=== PATIENT | female | born 1980 | race Caucasian/White ===

== ENCOUNTER 2023-04-02 12:53 | Emergency (ER) | payer BC, OTHER ==
[~2023-04-02] VITALS: Ht 165.1 cm; Wt 79.8 kg
[2023-04-02 12:55] VITALS: BP 143/75
[2023-04-02] MEDS ORDERED: NS IV 1000 ML 1,000 ML IV STA (13:07)
[2023-04-02] MEDS ORDERED: ONDANSETRON 4 MG/2 ML (SDV) Z0FRAN IVP STA (13:07)
[2023-04-02] MEDS ORDERED: KETOROLAC 15 MG/ML VIAL IVP STA (13:07)
[2023-04-02 13:11] LABS: BASOPHILS % (AUTO) 0 % (0-10); EOSINOPHILS % (AUTO) 0 % (0-10); HEMATOCRIT 40 % (35-52); HEMOGLOBIN 12.7 g/dL (11.5-16.0); LYMPHOCYTES # (AUTO) 0.8 10^3/uL (1.0-4.0); LYMPHOCYTES % (AUTO) 6 % (12-44); MEAN CORPUSCULAR HEMOGLOBIN 28 pg (25-34); MEAN CORPUSCULAR HGB CONC 32 g/dL (32-36); MEAN CORPUSCULAR VOLUME 87 fL (80-99); MEAN PLATELET VOLUME 9.8 fL (9.0-12.2); MONOCYTES # (AUTO) 0.2 10^3/uL (0.0-1.0); MONOCYTES % (AUTO) 2 % (0-12); NEUTROPHILS # (AUTO) 11.8 10^3/uL (1.8-7.8); NEUTROPHILS % (AUTO) 92 % (42-75); PLATELET COUNT 255 10^3/uL (130-400); WHITE BLOOD COUNT 12.9 10^3/uL (4.3-11.0)
[2023-04-02 13:12] LABS: BILIRUBIN,URINE NEGATIVE (NEGATIVE); COLOR,URINE YELLOW; GLUCOSE, URINE (UA) NEGATIVE (NEGATIVE); KETONES,URINE NEGATIVE (NEGATIVE); LEUKOCYTE ESTERASE ,URINE NEGATIVE (NEGATIVE); NITRITE,URINE NEGATIVE (NEGATIVE); PH,URINE 5.5 (5-9); PROTEIN,URINE NEGATIVE (NEGATIVE)
--- NOTE | 2023-04-02 13:13 | ED Abdominal Pain ---
General Chief Complaint: Abdominal/GI Problems Stated Complaint: RIGHT ABD PAIN Source of Information: Patient History of Present Illness Date Seen by Provider: Apr 02, 2023 Time Seen by Provider: 12:58 Initial Comments 42-year-old female presenting with complaints of right flank pain. She states this started earlier this morning. She has had at least 8 episodes of vomiting and continues to be nauseated. She denies having pain like this previously. She also just recently started her menstrual cycle so she is having some vaginal bleeding and is unable to tell if she has blood in her urine or if it is just from her cycle. She has had prior C-sections on her abdomen and pelvis but no other abdominal surgeries. She has taken ibuprofen to try and help with the pain and kept down the dose from noon. She denies fever or chills. She has had no change in her bowel habits. She denies pain with urination but does have right flank pain worse with movement, palpation, urination. She denies any fall or injury to trigger her symptoms. Timing/Duration: 12-24 Hours Severity/Quality: Severe, Cramping, Sharp Location: Flank (Right flank) Radiation: Flank (Right flank) Activities at Onset: Sleeping Modifying Factors: Worsens With Movement, Worsens With Palpation, Worsens With Urinating Associated Symptoms: Back Pain (Right CVA and flank); No Chest Pain, No Diaphoresis, No Fever/Chills, No Fatigue, No Headache, No Heartburn; Nausea/Vomiting; No Rash, No Shortness of Air, No Swelling/Mass in Abdomen, No Syncope, No Weakness Allergies and Home Medications Allergies Coded Allergies: No Known Drug Allergies (Unverified , 04/02/23) Patient Home Medication List Home Medication List Reviewed: Yes Ciprofloxacin HCl (Ciprofloxacin HCl) 500 Mg Tablet, 500 MG PO BID Prescribed by: TITO IBRMINGHAM on 04/02/23 1400 Hydrocodone/Acetaminophen (Hydrocodone-Acetamin 5-325 mg) 5 Mg-325 Mg Tablet, 1 TAB PO Q4H PRN for PAIN SEVERE Prescribed by: TITO BIRMINGHAM on 04/02/23 1401 Ondansetron (Ondansetron Odt) 4 Mg Tab.rapdis, 4 MG PO Q6H PRN for NAUSEA/VOMITING Prescribed by: TITO NGORT on 04/02/23 1400 Tamsulosin HCl (Flomax) 0.4 Mg Cap, 0.4 MG PO DAILY Prescribed by: TITO BIRMINGHAM on 04/02/23 1400 Review of Systems Review of Systems Constitutional: No chills; dizziness; No fever EENTM: No Symptoms Reported Respiratory: No Symptoms Reported Cardiovascular: No Symptoms Reported Gastrointestinal: See HPI Genitourinary: See HPI Musculoskeletal: see HPI Skin: no symptoms reported; No change in color, No rash Psychiatric/Neurological: No Symptoms Reported Endocrine: No Symptoms Reported Past Dnezoac-Idpxyc-Lcuojs Hx Patient Social History Tobacco Use?: No Use of E-Cig and/or Vaping dev: No Substance use?: No Alcohol Use?: No Past Medical History Surgery/Hospitalization HX: section Surgeries: Yes Section Physical Exam Vital Signs Vital Signs - First Documented 04/02/23 12:55 Temp 35.9 Pulse 76 Resp 16 B/P (MAP) 143/75 (97) O2 Delivery Room Air Capillary Refill : Height/Weight/BMI Height: '" Weight: lbs. oz. kg; BMI Method: General Appearance: WD/WN, no apparent distress HEENT: PERRL/EOMI, pharynx normal Neck: non-tender, full range of motion, supple, normal inspection Respiratory: chest non-tender, lungs clear, normal breath sounds, no respiratory distress, no accessory muscle use Cardiovascular: normal peripheral pulses, regular rate, rhythm Gastrointestinal: normal bowel sounds, soft, no pulsatile mass; No distended, No guarding, No rebound; tenderness (Right CVA and flank pain) Rectal: deferred Extremities: normal range of motion, non-tender, normal capillary refill Back: CVA tenderness (R) Neurologic/Psychiatric: alert, oriented x 3 Skin: normal color, warm/dry Progress/Results/Core Measures Results/Orders Lab Results Laboratory Tests Test 04/02/23 12:55 04/02/23 13:05 Range/Units Urine Color YELLOW Urine Clarity CLOUDY Urine pH 5.5 5-9 Urine Specific Colver >=1.030 1.016-1.022 Urine Protein NEGATIVE NEGATIVE Urine Glucose (UA) NEGATIVE NEGATIVE Urine Ketones NEGATIVE NEGATIVE Urine Nitrite NEGATIVE NEGATIVE Urine Bilirubin NEGATIVE NEGATIVE Urine Urobilinogen 0.2 < = 1.0 MG/DL Urine Leukocyte Esterase NEGATIVE NEGATIVE Urine RBC (Auto) 3+ H NEGATIVE Urine RBC 10-25 H /HPF Urine WBC 10-25 H /HPF Urine Squamous Epithelial Cells 2-5 /HPF Urine Crystals NONE /LPF Urine Bacteria MODERATE H /HPF Urine Casts NONE /LPF Urine Mucus LARGE H /LPF Urine Culture Indicated YES White Blood Count 12.9 H 4.3-11.0 10^3/uL Red Blood Count 4.55 3.80-5.11 10^6/uL Hemoglobin 12.7 11.5-16.0 g/dL Hematocrit 40 35-52 % Mean Corpuscular Volume 87 80-99 fL Mean Corpuscular Hemoglobin 28 25-34 pg Mean Corpuscular Hemoglobin Concent 32 32-36 g/dL Red Cell Distribution Width 13.3 10.0-14.5 % Platelet Count 255 130-400 10^3/uL Mean Platelet Volume 9.8 9.0-12.2 fL Immature Granulocyte % (Auto) 0 % Neutrophils (%) (Auto) 92 H 42-75 % Lymphocytes (%) (Auto) 6 L 12-44 % Monocytes (%) (Auto) 2 0-12 % Eosinophils (%) (Auto) 0 0-10 % Basophils (%) (Auto) 0 0-10 % Neutrophils # (Auto) 11.8 H 1.8-7.8 10^3/uL Lymphocytes # (Auto) 0.8 L 1.0-4.0 10^3/uL Monocytes # (Auto) 0.2 0.0-1.0 10^3/uL Eosinophils # (Auto) 0.0 0.0-0.3 10^3/uL Basophils # (Auto) 0.0 0.0-0.1 10^3/uL Immature Granulocyte # (Auto) 0.1 0.0-0.1 10^3/uL Neutrophils % (Manual) 96 % Lymphocytes % (Manual) 3 % Monocytes % (Manual) 1 % Sodium Level 142 135-145 MMOL/L Potassium Level 3.8 3.6-5.0 MMOL/L Chloride Level 106 98-107 MMOL/L Carbon Dioxide Level 23 21-32 MMOL/L Anion Gap 13 5-14 MMOL/L Blood Urea Nitrogen 20 H 7-18 MG/DL Creatinine 1.09 0.60-1.30 MG/DL Estimat Glomerular Filtration Rate 64 BUN/Creatinine Ratio 18 Glucose Level 119 H 70-105 MG/DL Calcium Level 9.2 8.5-10.1 MG/DL Corrected Calcium 8.9 8.5-10.1 MG/DL Total Bilirubin 0.2 0.1-1.0 MG/DL Aspartate Amino Transf (AST/SGOT) 13 5-34 U/L Alanine Aminotransferase (ALT/SGPT) 11 0-55 U/L Alkaline Phosphatase 76 40-136 U/L Total Protein 6.9 6.4-8.2 GM/DL Albumin 4.4 3.2-4.5 GM/DL Lipase 26 8-78 U/L My Orders Orders - TITO BIRMINGHAM MD Comprehensive Metabolic Panel (04/02/23 13:06) Lipase (04/02/23 13:06) Ua Culture If Indicated (04/02/23 13:06) Ed Iv/Invasive Line Start (04/02/23 13:06) Cbc With Automated Diff (04/02/23 13:06) Ct Abdomen/Pelvis Wo (04/02/23 13:06) Urine Bedside (04/02/23 13:06) Ns Iv 1000 Ml (Sodium Chloride 0.9%) (04/02/23 13:07) Ketorolac Injection (Toradol Injection) (04/02/23 13:07) Ondansetron Injection (Zofran Injectio (04/02/23 13:07) Manual Differential (04/02/23 13:05) Urine Culture (04/02/23 12:55) Ceftriaxone Iv/Im (Ceftriaxone Iv/Im) (04/02/23 13:23) Hydrocodone/Apap 5/325 Tablet (Hydrocod (04/02/23 14:01) Tamsulosin Capsule (Flomax Capsule) (04/02/23 14:01) Strain Urine (04/02/23 14:01) Vital Signs/I&O 04/02/23 12:55 Temp 35.9 Pulse 76 Resp 16 B/P (MAP) 143/75 (97) O2 Delivery Room Air Progress Progress Note #1: Progress Note Potential diagnosis of kidney stone, renal colic, pyelonephritis, cystitis, ovarian cyst, appendicitis, colitis, diverticulitis. Obtain peripheral IV access and send labs for complete blood count, comprehensive metabolic profile, lipase, urinalysis, urine test. CT scan of the abdomen and pelvis without IV contrast to look at the right flank pain. Administer normal saline 1 L IV fluid bolus for hydration, Toradol 15 mg IV for pain, Zofran 4 mg IV for nausea and vomiting. Progress Note #2: Time: 13:20 Progress Note On my personal interpretation I reviewed her complete blood count shows mild elevation of her white blood cell count with 12.9 and 92% neutrophils for left shift. Hemoglobin was low normal at 12.7. Her urinalysis was showing some dehydration with concentrated specific gravity greater than 1.030. She had 3+ red blood cells with 10-25 white blood cells, moderate bacteria, mucus. A culture was reflexed. Will treat with ceftriaxone or Rocephin 1 g IV here in the ED and provided her CT and the rest of her test did not show anything acute. Discharged her with oral antibiotics for the next 5 days. 1331 On my personal interpretation and review of her CT scan of the abdomen and pelvis without IV contrast she does have some hydronephrosis and hydroureter on the right side with a proximal kidney stone measuring approximately 4.8 mm. She also has an additional kidney stone in the right kidney. I did not appreciate any acute appendicitis. 1349 I have reviewed the radiologist report on the CT scan of the abdomen and pelvis without IV contrast. They measured a 5 mm kidney stone in the right proximal ureter with hydroureter and hydronephrosis. There was no acute findings on the CT scan. Her comprehensive metabolic panel had shown BUN of 20 with a creatinine of 1.09. Her lipase was negative at 26. We will continue with antibiotics for possible UTI and use Flomax as well as pain medicine to help with the kidney stone pain. Zofran 4 mg every 6 hours as needed for nausea and vomiting. Given information for Dr. Hdz with urology for follow-up. If her symptoms or not improving over the next day or 2 and she does not see it when she strains her urine then he may need to do a procedure to help break up the kidney stone or remove it. She reports her pain is down to 4 or 5 out of 10 after the fluid and toradol here. Given a Flomax 0.4 mg po and Hydrocodone/APAP 5/325 mg po prior to discharge. Scripts for cipro 500 mg bid for UTI, Flomax 0.4 mg po daily x7 days, Hydrocodone/APAP 5/325 1 every 4 hours prn severe pain, Zofran ODT 4 mg every 6 hours prn n/v sent to [facility] pharmacy. Counseled on follow up and return precautions. Diagnostic Imaging Diagonstic Imaging: CT Plain Films/CT/US/NM/MRI: abdomen, pelvis Comments NAME: VERN BOUDREAUX [facility] REC#: [id number] PT STATUS: REG ER : 1980 PHYSICIAN: TITO BIRMINGHAM MD ADMIT DATE: 04/02/23/ER FS Signed Date of Exam:04/02/23 CT ABDOMEN/PELVIS WO PROCEDURE: CT abdomen and pelvis without contrast. TECHNIQUE: Multiple contiguous axial images were obtained through the abdomen and pelvis without the use of intravenous contrast. Auto Exposure Controls were utilized during the CT exam to meet ALARA standards for radiation dose reduction. INDICATION: Right-sided flank pain. Vomiting. COMPARISON: None. FINDINGS: The heart is unremarkable. The lung bases are clear. Calculus is seen in the proximal right ureter measuring 5 mm with moderate right-sided hydronephrosis. Nonobstructing calculi are seen in the right kidney measuring up to 8 mm. No hydronephrosis on the left. The urinary bladder is decompressed. The liver, spleen, pancreas, and adrenal glands have a normal noncontrast CT appearance. The gallbladder is unremarkable. There is no pathologically enlarged mesenteric or retroperitoneal adenopathy. The bowel loops are nondilated. The appendix is visualized in the right lower quadrant and has a normal appearance. There is no free fluid or free air. No acute osseous abnormalities. Ureters and bladder are normal. Numerous phleboliths are seen in the pelvis. There is no free air, loculated collection, or adenopathy in the pelvis. IMPRESSION: 1. Calculus in the proximal right ureter measuring 5 mm with moderate right-sided hydronephrosis. Additional nonobstructing calculi are seen in the right kidney measuring up to 8 mm. Dictated by: Dictated on workstation # [id number] Dict: 04/02/23 1334 Trans: 04/02/23 1343 [facility] [id number] Interpreted by: CYNDEE HERNANDEZ DO Electronically signed by: CYNDEE HERNANDEZ DO 04/02/23 1344 Reviewed: Reviewed by Me Departure Impression Primary Impression: Renal colic on right side Additional Impressions: Acute right flank pain Acute cystitis Qualified Codes: N30.01 - Acute cystitis with hematuria Calculus of proximal right ureter Disposition: HOME, SELF-CARE Condition: Stable Departure-Patient Inst. Decision time for Depature: 14:01 Referrals: LAURA JONAS DO (PCP) Primary Care Physician Patient Instructions: Flank Pain ED, Kidney Stone, Adult ED, Urinary Tract Infection, Adult ED, Kidney Stone Diet, How to Strain Your Urine Add. Discharge Instructions: Strain your urine to see when the stone might pass. Use the pain medicine to help keep the pain at a tolerable level. Drink more water and electrolyte drinks to stay hydrated. Use the Flomax (Tamsulosin) to help with relaxing the ureter to try and help the kidney stone pass. Use the narcotic pain medicine to help keep the pain at a tolerable level. It can cause constipation so consider taking a laxative such as miralax along with the pain medicine to help prevent that. Follow up with Dr. Hdz or Urologist of your choice this week if pain and symptoms not resolving and if you do not see the stone pass when you are straining your urine. His address is [address] [place] [id number] but he does come to [facility] for clinic as well. Phone number . If your pain is worsening and uncontrolled with pain medicine, fever over 101 F, or uncontrolled vomiting then you should be seen again as you may need to be admitted at a hospital that has Urology to help with your pain and removing the kidney stone. All discharge instructions reviewed with patient and/or family. Voiced understanding. Scripts Ciprofloxacin HCl (Ciprofloxacin HCl) 500 Mg Tablet 500 MG PO BID for UTI for 5 Days, #10 TAB 0 Refills Prov: TITO BIRMINGHAM MD 04/02/23 Ondansetron (Ondansetron Odt) 4 Mg Tab.rapdis 4 MG PO Q6H PRN for NAUSEA/VOMITING for 3 Days, #12 TAB 0 Refills Prov: TITO BIRMINGHAM MD 04/02/23 Hydrocodone/Acetaminophen (Hydrocodone-Acetamin 5-325 mg) 5 Mg-325 Mg Tablet 1 TAB PO Q4H PRN for PAIN SEVERE for 3 Days, #18 TAB 0 Refills Prov: TITO BIRMINGHAM MD 04/02/23 Tamsulosin HCl (Flomax) 0.4 Mg Cap 0.4 MG PO DAILY for renal colic for 7 Days, #7 CAP 0 Refills Prov: TITO BIRMINGHAM MD 04/02/23 TITO BIRMINGHAM MD Apr 02, 2023 13:13
[2023-04-02 13:18] LABS: BACTERIA,URINE MODERATE /HPF; CLARITY,URINE CLOUDY
[2023-04-02] MEDS ORDERED: cefTRIAXone IV/IM 1,000 MG in NS (IVPB) 50 ML 50 ML IV STA (13:23)
[2023-04-02 13:26] LABS: LYMPHOCYTES % (MANUAL) 3 %; MONOCYTES % (MANUAL) 1 %; NEUTROPHILS % (MANUAL) 96 %
[2023-04-02 13:34] LABS: ALBUMIN 4.4 GM/DL (3.2-4.5); BILIRUBIN,TOTAL 0.2 MG/DL (0.1-1.0); CALCIUM 9.2 MG/DL (8.5-10.1); CREATININE SERUM 1.09 MG/DL (0.60-1.30); POTASSIUM 3.8 MMOL/L (3.6-5.0); TOTAL PROTEIN 6.9 GM/DL (6.4-8.2)
--- NOTE | 2023-04-02 13:41 | Diagnostic Imaging Report ---
PROCEDURE: CT abdomen and pelvis without contrast. TECHNIQUE: Multiple contiguous axial images were obtained through the abdomen and pelvis without the use of intravenous contrast. Auto Exposure Controls were utilized during the CT exam to meet ALARA standards for radiation dose reduction. INDICATION: Right-sided flank pain. Vomiting. COMPARISON: None. FINDINGS: The heart is unremarkable. The lung bases are clear. Calculus is seen in the proximal right ureter measuring 5 mm with moderate right-sided hydronephrosis. Nonobstructing calculi are seen in the right kidney measuring up to 8 mm. No hydronephrosis on the left. The urinary bladder is decompressed. The liver, spleen, pancreas, and adrenal glands have a normal noncontrast CT appearance. The gallbladder is unremarkable. There is no pathologically enlarged mesenteric or retroperitoneal adenopathy. The bowel loops are nondilated. The appendix is visualized in the right lower quadrant and has a normal appearance. There is no free fluid or free air. No acute osseous abnormalities. Ureters and bladder are normal. Numerous phleboliths are seen in the pelvis. There is no free air, loculated collection, or adenopathy in the pelvis. IMPRESSION: 1. Calculus in the proximal right ureter measuring 5 mm with moderate right-sided hydronephrosis. Additional nonobstructing calculi are seen in the right kidney measuring up to 8 mm. Dictated by: Dictated on workstation # [id number]
[2023-04-02] MEDS ORDERED: TMSL.4C PO (14:00)
[2023-04-02] MEDS ORDERED: ONDA4TAB11 PO (14:00)
[2023-04-02] MEDS ORDERED: CIPR500T5 PO (14:00)
[2023-04-02] MEDS ORDERED: ACHD5005 PO (14:00)
[2023-04-02] MEDS ORDERED: TAMSULOSIN 0.4 MG (FLOMAX) CAP PO STA (14:01)
[2023-04-02] MEDS ORDERED: HYDROcodone/ACETAMINOPHEN 5 MG/325 MG TABLET PO STA (14:01)
== END 2023-04-02 14:17 | disposition home or self-care (01) ==
LOC: ER FS 12:57
DX: N13.2 Hydronephrosis with renal and ureteral calculous obstruction (principal); N30.00 Acute cystitis without hematuria; E86.0 Dehydration
CPT/HCPCS: 36415; 74176; 80053; 81000; 83690; 84703; 85007; 85027; 87088